=== PATIENT | male | born 1985 | race African-American/Black ===

== ENCOUNTER 2018-06-27 00:05 | Emergency (ER) | payer OTHER ==
[2018-06-27 00:09] VITALS: Ht 170.2 cm
[2018-06-27 01:42] LABS: CALCIUM 8.9 mg/dL (8.5-10.1); CARBON DIOXIDE 30.5 mmol/L (21-32); CHLORIDE SERUM 105 mmol/L (98-107); CREATININE SERUM 1.1 mg/dL (0.7-1.3); GFR1 > 60 mL/min; GLUCOSE SERUM 103 mg/dL (74-106); SODIUM SERUM 143 mmol/L (136-145)
[2018-06-27 01:43] LABS: ALBUMIN 3.8 g/dL (3.4-5.0); ALKALINE PHOSPHATASE 152 U/L (46-116); ALT/SGPT 25 U/L (16-63); AST/SGOT 22 U/L (15-37); BILIRUBIN TOTAL 0.16 mg/dL (0.20-1.00); MAGNESIUM 2.3 mg/dL (1.8-2.4); TOTAL PROTEIN, SERUM 7.8 g/dL (6.4-8.2)
[2018-06-27 03:37] VITALS: BP 110/64
== END 2018-06-27 03:37 | disposition home or self-care (01) ==
LOC: ED 00:05
PROVIDERS: Emergency Medicine
DX: R56.9 Unspecified convulsions (principal)
CPT/HCPCS: J1165; J7050